=== PATIENT | female | born 1950 | race Caucasian/White ===

== ENCOUNTER 2018-06-02 10:09 | Day surgery (SDC) | payer OTHER, BC, MEDICARE ==
--- NOTE | 2018-05-17 08:28 | HP ---
PREOPERATIVE HISTORY AND PHYSICAL: DATE OF ADMISSION/SURGERY: 06/02/18 DATE OF OFFICE VISIT: 05/13/18 ATTENDING SURGEON: Dr. Keaton Wiseman.* (DICTATED BY LIYAH PRINCE) PROCEDURE: Right shoulder arthroscopic rotator cuff repair, decompression, debridement, and wrist carpal tunnel release. CHIEF COMPLAINT: Right shoulder. HISTORY OF PRESENT ILLNESS: Ele is a 67-year-old female, who presents to clinic for right shoulder pain due to rotator cuff repair and numbness and tingling in her hand due to carpal tunnel syndrome. She has failed conservative measures and has therefore agreed to undergo a right shoulder arthroscopic rotator cuff repair, decompression, debridement, and wrist carpal tunnel release with Dr. Wiseman on 06/02/18. PAST MEDICAL HISTORY: Hypertension, high cholesterol, type 2 diabetes, anxiety. PAST SURGICAL HISTORY: Colonoscopy, eye surgery. The patient denies prior complications with anesthesia. MEDICATIONS: 1. Amlodipine besylate 10 mg 1 by mouth daily. 2. Byetta 5 mcg pens daily. 3. Lisinopril/hydrochlorothiazide 20/25 mg daily. 4. Citalopram hydrobromide 20 mg 1 by mouth daily. 5. Metformin 1000 mg 1 by mouth daily. 6. Amlodipine 5 mg daily. 7. Rosuvastatin 10 mg daily. 8. Lantus 100 units inject 20 units subcu nightly. 9. Biotin 5000 mcg 1 cap by mouth daily. 10. Folic acid 400 mcg 1 by mouth daily. 11. Januvia 25 mg 1 by mouth daily. ALLERGIES: No known drug allergies. FAMILY HISTORY: Positive for a brother with a history of DVT after hip surgery. He was also a smoker. Otherwise, no pertinent family history. SOCIAL HISTORY: She lives with her spouse. She works as an hospital administrator. She denies tobacco or alcohol use. She is right-hand dominant. REVIEW OF SYSTEMS: A 14-point review of systems was reviewed with the patient. Positive for current complaint, otherwise negative. Denies numbness, tingling, fevers, chills, chest pain, shortness of breath, history of bleeding disorder, history of DVT or PE. PHYSICAL EXAMINATION GENERAL: A 67-year-old well-developed, well-nourished female, in no acute distress. Alert and oriented x3. Appropriate mood and affect. Appropriate balance and coordination of the upper extremities. VITAL SIGNS: Height 62, weight 245, blood pressure 138/62, respiratory rate 20 , temperature 97.9, BMI 44.8. HEENT: Normocephalic, atraumatic. PERRLA. Throat clear. NECK: Supple. PULMONARY: Lungs are clear to auscultation bilaterally. No wheezing, rhonchi, or rales. CARDIO: Regular rate and rhythm. S1, S2. No murmurs, gallops, or rubs. No edema. ABDOMEN: Positive bowel sounds. Soft, nontender. NEURO: Alert and oriented x3. Cranial nerves grossly intact. Sensation intact to light touch. MUSCULOSKELETAL: Right upper extremity: The skin is intact. No warmth or erythema. Tenderness to palpation in the subacromial space. Mild tenderness over the anterior joint line. Forward flexion to 165, abduction to 165, external rotation to 60, internal rotation to T10. +4/5 strength with supraspinatus and infraspinatus testing. Positive impingement, [place], [place] and [place]. Positive Janell. +2 radial pulse. Sensation intact to light touch distally. DIAGNOSTIC STUDIES: MRI and x-rays revealed mild degenerative changes with full- thickness supraspinatus and infraspinatus tear with retraction. IMPRESSION: Right shoulder rotator cuff tear and right wrist carpal tunnel. PLAN: The patient is scheduled to undergo a right shoulder arthroscopic rotator cuff repair, decompression, debridement, and wrist carpal tunnel release with Dr. Wiseman on 06/02/18. She will follow up in 10 to 14 days postop for followup and suture removal. Percocet will be used for postop pain management. LIYAH PRINCE [id number]/[facility] #: [id number] [facility] HOSPITALRikki
[~2018-06-02 10:09] MED LIST: Buffered Lidocaine 0.9% SYRIN* 5 ML/SYR SYRINGE INTRADERM ONE; Dexamethasone IV* 4 MG/ML 1 ML (4 MG) IV SLOW PU ONE; Famotidine IV* 10 MG/ML 2 ML (20 mg) IV ONE
[2018-06-02] MEDS ORDERED: Dexamethasone IV* 4 MG/ML 1 ML (4 MG) ONE (10:32)
[2018-06-02] MEDS ORDERED: Famotidine IV* 10 MG/ML 2 ML (20 mg) ONE (10:32)
[2018-06-02] MEDS ORDERED: Buffered Lidocaine 0.9% SYRIN* 5 ML/SYR SYRINGE ONE (10:32)
[2018-06-02] MEDS ORDERED: ceFAZolin 2 GM in NS PREMIX(*) 2 GM/100 ML BAG IVPB ONE (10:33)
[2018-06-02] MEDS ORDERED: Insulin REGULAR(*) 1 UNITS UNIT IV PUSH ONE (11:07)
[2018-06-02] MEDS ORDERED: Insulin REGULAR(*) 1 UNITS UNIT ONE (11:25)
[2018-06-02] MEDS ORDERED: Midazolam* 1 MG/ML 5 ML VIAL (5 MG) ONE (11:31)
[2018-06-02] MEDS ORDERED: fentaNYL* 50 MCG/ML 2 ML VIAL (100 MCG VIAL) ONE ×2 (11:31→13:53)
[2018-06-02] MEDS ORDERED: Ondansetron INJ* 2 MG/ML VIAL ONE ×2 (11:31→16:35)
[2018-06-02] MEDS ORDERED: Propofol* 10 MG/ML 20 ML BTL IV PUSH ONE (11:31)
[2018-06-02] MEDS ORDERED: Lidocaine 2% PF * 5 ML VIAL ONE (11:31)
[2018-06-02] MEDS ORDERED: ROPIVACAINE 5 MG/ML 30 ML BTL (0.5%) ONE (13:18)
[2018-06-02] MEDS ORDERED: Glycopyrrolate IV* 0.2 MG/ML 1 ML VIAL ONE (14:10)
[2018-06-02] MEDS ORDERED: Scopolamine 1.5 mg* PATCH TRANSDERM PRN (14:45)
[2018-06-02] MEDS ORDERED: HYDROmorphone INJ1* 1 MG/ML SYRINGE IV PRN (14:45)
[2018-06-02] MEDS ORDERED: fentaNYL* 50 MCG/ML 2 ML VIAL (100 MCG VIAL) IV PRN (14:45)
[2018-06-02] MEDS ORDERED: oxyCODONE/Acetamin 5/325 MG* TAB PO PRN (14:45)
[2018-06-02] MEDS ORDERED: Ondansetron INJ* 2 MG/ML VIAL IV PRN (14:45)
[2018-06-02] MEDS ORDERED: DiMENhydriNATE IV* 50 MG/ML VIAL IV PUSH PRN (14:45)
[2018-06-02] MEDS ORDERED: Naloxone* 0.4 MG/ML 1 ML VIAL IV PRN (14:45)
[2018-06-02 16:20] VITALS: BP 152/69
[2018-06-02] MEDS ORDERED: Scopolamine 1.5 mg* PATCH ONE (16:35)
--- NOTE | 2018-06-03 06:11 | OP ---
CC: PCP, Zahra Cox MD * DATE OF OPERATION: 06/02/18 - [facility] DATE OF : 54 SURGEON: Keaton Wiseman MD DIRECTOR PUBLIC: LIYAH Loomis, then LIYAH Clark. ANESTHESIOLOGIST: Dr. Christine. ANESTHESIA: General with interscalene block. PRE-OP DIAGNOSIS: Right shoulder massive rotator cuff tear with biceps tear. POST-OP DIAGNOSIS: Right shoulder massive rotator cuff tear with biceps tear. OPERATIVE PROCEDURE: 1. Right shoulder arthroscopy with right shoulder extensive glenohumeral debridement with biceps tenotomy. 2. Subacromial decompression with acromioplasty. 3. Rotator cuff repair with margin convergence type of pattern. IMPLANTS USED: One 4.75 Healicoil and one Multifix. COMPLICATIONS: None. ESTIMATED BLOOD LOSS: Minimal. INDICATIONS: Ele Taylor is a 67-year-old female with a 6 to 7 months history of an injury to her shoulder where she fell on the cement floor. She had persistent pain as well as numbness and tingling. She was diagnosed with carpal tunnel syndrome as well as a full thickness massive tear of the rotator cuff. She debated between surgical risks and nonoperative treatment when she showed up to my office approximately 6 months from the injury. Risks and benefits were discussed at length and included but not limited to bleeding, infection, damage to nerves, vessels, surrounding structures, wound nonhealing, persistent pain, need for further surgery, scarring, stiffness, incomplete relief of symptoms, risks of anesthesia, failure of the repair, need for further surgery, risk of DVT. She has elected to proceed. Initially the patient was to undergo a rotator cuff repair with carpal tunnel release but the patient had scratches from her new dog about her wrist and it was determined to delay it to another time. She elected to proceed with the rotator cuff repair. DESCRIPTION OF PROCEDURE: The patient was greeted in the preoperative area by the attending surgeon. Correct extremity was marked and the consent was confirmed. The patient underwent interscalene nerve block by the anesthesiologist. She was brought back to the operating suite, placed in supine position on the operating table. She underwent general anesthesia with endotracheal intubation after which she was placed in the left lateral decubitus position. An axillary roll was placed. She was secured with peg board. The right shoulder was draped unsterile with 10 pounds of traction. After appropriate surgical pause indicating site, side, procedure and administration of antibiotics, the standard postero-lateral portal was made sharply with an 11-blade. Scope was introduced into the joint, the joint was examined. There were grade 1 to 2 changes in the glenohumeral joint. The anterior, posterior, superior labrum had some mild fraying. The biceps was obviously subluxed anteriorly. There was a partial tearing of the subscap but it was less than 10%. The inferior recess was intact. There was a full thickness retracted tear of the supra and infraspinatus tendons to the level medial to the glenoid. There was abundant synovitis that was present. The anterior portal was made in an outside-in fashion. Shaver was used to debride back the biceps, which was then tenotomized. The shaver was used to debride back the anterior, posterior, superior labrum and electrocautery was used to stabilize synovitis to prevent bleeding, the tissue was very friable. After the intraarticular joint work was done, attention was directed to subacromial space. The scope was positioned in subacromial space. Lateral portal was made in an outside-in fashion. Shaver was used to debride back the abundant bursa. There was a significant amount of bursal adhesions that required release both bluntly and then electrocautery device as well as shaver. The cuff was then carefully identified. It appeared to be a large L-shaped tear, but there was also a retracted supraspinatus component. The cuff was then carefully mobilized, was unable to bring fully to the anterior aspect of the footprint. After several different lysis of adhesions and mobilizations of the cuff, margin convergence sutures were then placed to help allow the cuff to be reapproximated. This did allow for coverage just lateral to the glenoid. The infraspinatus was able to be completely reduced to the footprint as well as the posterior aspect of the supraspinatus; however, the anterior portion of the supraspinatus was not able to be easily reduced. After 2 margin convergence sutures were placed, another lysis of adhesions was done to see if there is any more space to free at the cuff. Through a separate stab incision, a 4.75 Healicoil was then placed. The bone quality was really poor and very soft and this was placed to allow to try to have some fixation anteriorly to the footprint as well as grabbing some of the more posterior leaflets. The sutures were then passed in a horizontal mattress configuration. These were then tied down. Again, the very anterior portion of the tendon had some tension to it. The more posterior aspect allowed for further reduction to the tuberosity. These were tied down and then passed through a Multifix anchor which was placed laterally for double row fixation. Final images were obtained. The wounds were copiously irrigated. The shoulder was taken through gentle range of motion and found to be stable. Portals were closed with 3-0 nylon. The sterile dressings were applied. Cryo/Cuff and UltraSling were applied. She was awoken from anesthesia, transferred to PACU in stable condition. POSTOPERATIVE PLAN: She will be nonweightbearing. She will be in a sling for 6 weeks. She will be discharged on pain medication, on antibiotics. DVT prophylaxis was considered, but deferred due to no previous personal or family history. I will see the patient back in 10 to 14 days. [id number]/[facility] #: [id number] MARY
== END 2018-06-02 16:46 | disposition home or self-care (01) ==
LOC: OR 10:09
PROVIDERS: ATTEND Orthopaedic Surgery
DX: S46.011A Strain of muscle(s) and tendon(s) of the rotator cuff of right shoulder, initial encounter (principal); S46.111A Strain of muscle, fascia and tendon of long head of biceps, right arm, initial encounter; W18.39XA Other fall on same level, initial encounter; Y92.89 Other specified places as the place of occurrence of the external cause; G89.18 Other acute postprocedural pain; E11.9 Type 2 diabetes mellitus without complications; Z79.84 Long term (current) use of oral hypoglycemic drugs; I10 Essential (primary) hypertension; E78.00 Pure hypercholesterolemia, unspecified; F41.9 Anxiety disorder, unspecified
CPT/HCPCS: A9270-GY; C1713; J0690; J1100; J2250; J2405; J2704; J2795; J3010

== ENCOUNTER 2018-11-01 11:20 | Day surgery (SDC) | payer BC, OTHER ==
[~2018-11-01 11:20] MED LIST changes: -Buffered Lidocaine 0.9% SYRIN* 5 ML/SYR SYRINGE INTRADERM ONE; +Buffered Lidocaine 1% SYRIN* 1 ML/SYRINGE INTRADERM ONE; +Lactated Ringers 1000 ML Bag* 1,000 ML IV SCH
[2018-11-01] MEDS ORDERED: Dexamethasone IV* 4 MG/ML 1 ML (4 MG) ONE (11:42)
[2018-11-01] MEDS ORDERED: Famotidine IV* 10 MG/ML 2 ML (20 mg) ONE (11:43)
[2018-11-01] MEDS ORDERED: Naloxone* 0.4 MG/ML 1 ML VIAL IV PRN (13:26)
[2018-11-01] MEDS ORDERED: fentaNYL* 50 MCG/ML 2 ML VIAL (100 MCG VIAL) ONE (13:40)
[2018-11-01] MEDS ORDERED: Propofol* 10 MG/ML 20 ML BTL ONE (13:41)
[2018-11-01] MEDS ORDERED: Ondansetron INJ* 2 MG/ML VIAL ONE (13:41)
[2018-11-01] MEDS ORDERED: Ketorolac INJ* 30 MG/ML 1 ML VIAL ONE (13:41)
[2018-11-01] MEDS ORDERED: Midazolam* 1 MG/ML 5 ML VIAL (5 MG) ONE (13:41)
[2018-11-01] MEDS ORDERED: Lidocaine 1% INJ* 10 MG/ML 30 ML SDV ONE (13:54)
[2018-11-01] MEDS ORDERED: Bupivacaine 0.25% SDV PF* 10 ML VIAL INJ ONE (13:54)
[2018-11-01 15:06] VITALS: BP 138/70
--- NOTE | 2018-11-01 23:20 | OP ---
DATE OF OPERATION: 11/01/18 [facility] DATE OF : 54 SURGEON: Keaton Wiseman MD RESTAURANT HOSTESS: JOAN Patel student. ANESTHESIOLOGIST: Dr. Christine. ANESTHESIA: Local MAC. PRE-OP DIAGNOSIS: Left carpal tunnel syndrome. POST-OP DIAGNOSIS: Left carpal tunnel syndrome. OPERATIVE PROCEDURE: Open left carpal tunnel release. COMPLICATIONS: None. ESTIMATED BLOOD LOSS: Minimal. TOURNIQUET TIME: 15 minutes 250 mmHg. INDICATIONS: Ele Taylor is a 67-year-old female who has had persistent carpal tunnel syndrome for over a year. She has failed conservative management and elected to proceed with surgical treatment. After extensive discussion of the risks and benefits of surgery, risks including but not limited to bleeding, infection, damage to nerves, vessels, and surrounding structures, wound nonhealing, persistent pain, need for further surgery, scarring, stiffness, incomplete relief of symptoms, and risks of anesthesia, she has elected to proceed with surgical treatment. DESCRIPTION OF PROCEDURE: The patient was greeted in the preoperative area by the attending surgeon. Correct extremity was marked and consent was confirmed. The patient was brought back to the operating suite, was placed in supine position on the operating table. Ele underwent local MAC after which surgical pause was done. The incision was then injected with 1% lidocaine plain after which the left arm was prepped and draped in usual sterile fashion with ChloraPrep. After a brief surgical pause indicating site, side, procedure , the Esmarch was used to exsanguinate the limb. Tourniquet was inflated to 250 mmHg. Tourniquet time was 13 minutes. Incision was made over the carpal tunnel using Ramsay's line where it intersects with the radial edge of the fourth digit. Soft tissues were carefully dissected to expose the palmar fascia , which was then excised. Incision was taken down to expose the carpal tunnel. She had an accessory muscle belly that was gently scraped off and the incision was made more ulnarly to prevent any accident or injury. Carpal tunnel was then identified and fully released. There was very thick tissue. The nerve was found to be intact without any obvious bruising, but had obvious compression, released in a manner the carpal tunnel was released with a #15 blade. Russell was placed underneath the transverse carpal ligament to protect the nerve and prevent iatrogenic injury. This was released in its entirety proximally and distally using a 15 blade as well as scissors. The Russell was checked to make sure there is no evidence of further impingement. The wounds were then copiously irrigated with sterile saline. The skin was closed in an interrupted fashion with 4-0 nylon. 10 cc of 0.25% Marcaine was then placed around the wound. Sterile dressings were applied as well as a short volar splint. The tourniquet was deflated for a total time of 15 minutes. The extremity was pink and well perfused. She was awoken from anesthesia and transferred to the PACU in stable condition. POSTOPERATIVE PLAN: She will work on range of motion of her digits. I will see her back in 2 weeks. [id number]/[facility] #: [id number] MARY
== END 2018-11-01 15:07 | disposition home or self-care (01) ==
LOC: OREAST 11:20
PROVIDERS: ATTEND Orthopaedic Surgery
DX: G56.02 Carpal tunnel syndrome, left upper limb (principal); E11.9 Type 2 diabetes mellitus without complications; Z79.84 Long term (current) use of oral hypoglycemic drugs; I10 Essential (primary) hypertension; E78.00 Pure hypercholesterolemia, unspecified; F41.9 Anxiety disorder, unspecified
CPT/HCPCS: J1100; J1885; J2250; J2405; J2704; J3010; J3490